=== PATIENT | male | born 1995 | race Caucasian/White ===

== ENCOUNTER 2016-08-12 22:36 | Emergency (ER) | payer SELFPAY ==
[~2016-08-12 22:36] MED LIST: NS 1,000 ML IV ONE; ONDANSETRON 4 MG/2 ML VIAL IVP ONE
[2016-08-12] MEDS ORDERED: ONDANSETRON DISINTEGRATING 4 MG TAB ONE (22:44)
[2016-08-12] MEDS ORDERED: ONDANSETRON DISINTEGRATING 4 MG TAB PO ONE (22:50)
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
[2016-08-12] MEDS ORDERED: CHLORDIAZEPOXIDE 25MG PREPK#6 BTL TAKEHOME ONE (22:55)
[2016-08-12 23:51] VITALS: BP 110/66; PULSE 66; RESP 16; TEMP 98.6; O2SAT 96
== END 2016-08-12 23:50 | disposition home or self-care (01) ==
DX: F10.920 Alcohol use, unspecified with intoxication, uncomplicated (principal)